=== PATIENT | female | born 1975 | race Caucasian/White ===

== ENCOUNTER 2022-04-01 05:24 | Observation (INO) ==
--- NOTE | 2022-03-28 20:22 | Anesthesiology Consultation ---
Date of Service March 28, 2022 Assessment & Plan (1) Encounter for pre-operative examination: - COVID screening: Per assessment on 03/25: No known COVID-19 positive contacts or current COVID-19 related symptoms. Travel screen negative. Patient vaccinated. Surgeon arranging preop COVID testing. Awaiting results. -Check test AM DOS -Graves dz/hyperthyroidism: Euthyroid off meds, under surveillance by PCP. Most recent TSH/free T4 were WNL but not since 07/2021.At anesthesiologist discretionAM DOS if updated levels needed from their perspective. Chart Review Chart Review: Acceptable Risk for Surgery and Patient NOT seen in Pre Admission Testing History Surgery Operation Date: 04/01/22 13:35 Proposed Procedures p Laparoscopic Hysterectomy Bilateral Salpingectomy, Cystoscopy with Possible Laparotomy - Martin Hitchcock MD Height/Weight Height: 5 ft 5.75 in Weight: 60.781 kg Allergies Allergy/AdvReac Type Severity Reaction Status Date / Time No Known Allergies Allergy NKA+ Verified 03/25/22 15:47 Medications Home Medications Medication Instructions Recorded Confirmed Last Taken clonazepam 0.5 mg tablet 0.5 mg PO BID PRN 03/15/22 03/25/22 Unknown fluticasone propionate 50 1 spray INTRANASAL QAM 03/15/22 03/25/22 Unknown mcg/actuation nasal spray,suspension loratadine 10 mg tablet 10 mg PO QAM 03/15/22 03/25/22 Unknown mesalamine 1.2 gram tablet,delayed 1.2 g PO QPM 03/15/22 03/25/22 Unknown release phenytoin sodium extended 100 mg 300 mg PO HS 03/15/22 03/25/22 Unknown capsule (Dilantin Extended) venlafaxine 75 mg tablet 75 mg PO QAM 03/15/22 03/25/22 Unknown Past Medical History Medical History Adenomyosis Anxiety EIN (endometrial intraepithelial neoplasia) Graves disease History of hyperthyroidism Euthyroid off meds, under surveillance by PCP History of seizures Last seizure 30+ years ago Stable/no recent issues per 12/28/21 [facility] neurology office visit, recommendation to f/u in one year Ulcerative colitis Past Family History Family History Other No family history of adverse response to anesthesia Past Surgical History Surgical History History of colonoscopy History of open reduction and internal fixation (ORIF) procedure LLE History of wisdom tooth extraction Social History Smoking Status: Former smoker Do You Dip or Chew Tobacco: No Smoking End Date: 10 yrs ago Hx Alcohol Use: No Hx Substance Use: No substance use type: does not use Testing Laboratory Results 08/17/21 TSH 0.66 (WNL) FREE T4 0.8 (WNL) 03/01/22 WBC 3.37 H/H 15.3/46.1 PLATELETS 270
[2022-04-01] MEDS ORDERED: LR 15ML/HR IV SCH (06:00)
[2022-04-01] MEDS ORDERED: ACETAMINOPHEN 1000 MG/100 ML IV IV ONE (06:11)
[2022-04-01] MEDS ORDERED: SUGAMMADEX SODIUM 200 MG/2 ML VIAL IV ONE (06:12)
[2022-04-01] MEDS ORDERED: MIDAZOLAM HCL 1 MG/ML 2ML VIAL ONE (06:34)
[2022-04-01] MEDS ORDERED: fentaNYL citrate 100 MCG/2 ML VIAL ONE ×2 (06:34→08:33)
[2022-04-01] MEDS ORDERED: fentaNYL citrate 100 MCG/2 ML VIAL IV PRN (06:35)
[2022-04-01] MEDS ORDERED: ONDANSETRON INJ 2 MG/ML 2 ML VIAL IV PRN ×2 (06:35→09:44)
[2022-04-01] MEDS ORDERED: ePHEDrine sulfate 50 MG/ML AMP IV PRN (06:35)
[2022-04-01] MEDS ORDERED: ATROPINE SULFATE 0.1 MG/ML 10ML SYR IV PRN (06:35)
[2022-04-01] MEDS ORDERED: FAMOTIDINE/PF 20 MG/2 ML VIAL IV ONE (06:36)
[2022-04-01] MEDS ORDERED: ceFAZolin 2,000 MG/15 ML IV PUSH IV ONE (06:55)
--- NOTE | 2022-04-01 06:56 | History & Physical Bridge Note ---
Date of Service April 01, 2022 History & Physical Bridge Note I have examined the patient, reviewed the History & Physical and in the interval since the performance of the History & Physical I have noted the following changes of clinical significance: no changes noted
[2022-04-01] MEDS ORDERED: ceFAZolin 2000MG 2,000 MG/15 ML SYR IV ONE (06:57)
[2022-04-01] MEDS ORDERED: BUPIVACAINE 0.5 % 5 MG/1 ML MPF 30ML VIAL ONE (07:00)
[2022-04-01] MEDS ORDERED: PROPOFOL IV EMULSION 10 MG/ML 20 ML VIAL IV ONE (07:40)
[2022-04-01] MEDS ORDERED: ROCURONIUM BROMIDE 10 MG/ML 5 ML VIAL IV ONE ×3 (07:40→08:13)
[2022-04-01] MEDS ORDERED: KETOROLAC 30 MG/ML VIAL ONE (07:40)
[2022-04-01] MEDS ORDERED: LIDOCAINE 2% 2 ML VIAL/AMP(20MG/ML) INFIL ONE (07:40)
[2022-04-01] MEDS ORDERED: DEXAMETHASONE SOD INJ 4 MG/ML VIAL ONE (07:40)
[2022-04-01] MEDS ORDERED: ONDANSETRON INJ 2 MG/ML 2 ML VIAL ONE (07:40)
[2022-04-01] MEDS ORDERED: diphenhydrAMINE 50 MG/ML VIAL ONE (07:41)
[2022-04-01] MEDS ORDERED: ePHEDrine sulfate 50 MG/ML SYR ONE (07:48)
[2022-04-01] MEDS ORDERED: METHYLENE BLUE 0.5% 10 ML VIAL ONE ×2 (08:24)
[2022-04-01] MEDS ORDERED: TISSEEL FIBRIN SEALANT 10ML TOP ONE (09:32)
[2022-04-01] MEDS ORDERED: oxyCODONE/ACETAMINOPHEN 5mg/325mg TAB PO PRN (09:44)
[2022-04-01] MEDS ORDERED: ZOLPIDEM TARTRATE 5 MG TAB PO PRN (09:44)
[2022-04-01] MEDS ORDERED: bisacodyL 10 MG SUPP PR PRN (09:44)
[2022-04-01] MEDS ORDERED: MAGNESIUM HYDROXIDE SUSP 30 ML UDC PO PRN (09:44)
[2022-04-01] MEDS ORDERED: PROMETHAZINE HCL 12.5 MG in SODIUM CHLORIDE 0.9% 50 ML IV PRN (09:44)
[2022-04-01] MEDS ORDERED: LACTATED RINGER'S 1,000 ML IV SCH (09:45)
--- NOTE | 2022-04-01 10:59 | Anesthesiology Progress Note ---
Date of Service April 01, 2022 Anesthesia Post Procedure Vital Signs Vital Signs: Temp Pulse Pulse Resp BP Pulse Ox 04/01/22 10:40 72 14 117/72 97 04/01/22 10:25 97.5 F L 71 18 117/76 95 04/01/22 10:15 79 13 120/83 97 04/01/22 10:05 77 12 139/87 99 04/01/22 09:55 83 14 132/85 99 04/01/22 09:45 97.3 F L 68 16 104/63 99 04/01/22 05:46 98.8 F 70 16 96/68 L 97 Transfer of Care Handoff Completed per policy Notes Mental Status: alert / awake / arousable and participated in evaluation Patient Amnestic to Procedure: Yes Nausea / Vomiting: adequately controlled Pain: adequately controlled Airway Patency, RR, SpO2: stable & adequate BP & HR: stable & adequate Hydration State: stable & adequate Anesthetic Complications: no major complications apparent and Pt Satisfied with anesthetic care
--- NOTE | 2022-04-01 12:23 | Post Operative Brief Note ---
Immediate Post Op Note v1 Date of Surgery April 01, 2022 Pre & Post Diagnosis Operation Date: 04/01/22 07:00 Pre-Op Diagnosis: Endometrial Intraepithelial Neoplasia Post-Op Diagnosis: Endometrial Intraepithelial Neoplasia I identified the patient and participated in the time-out.: Yes Procedure Operation Date: 04/01/22 07:00 Actual Procedures p Laparoscopic Hysterectomy Bilateral Salpingectomy,(Not Applicable) - Martin Hitchcock MD s Cystoscopy(Not Applicable) - Martin Hitchcock MD Surgeon Martin Hitchcock MD Licensing Engineer pratima gutierrez Estimated Blood Loss 20 Findings Consistent with Post-Op Diagnosis
[2022-04-01] MEDS: SIMETHICONE 80 MG CHEW PO PRN (13:01)
[2022-04-01] MEDS: oxyCODONE/ACETAMINOPHEN 5mg/325mg TAB PO PRN ×2 (16:09→21:05)
[2022-04-01] MEDS: IBUPROFEN 600 MG TAB PO PRN ×2 (16:09→21:05)
[2022-04-01] MEDS ORDERED: Nursing to Pharmacy Communication SCH (19:00)
[2022-04-01] MEDS ORDERED: PHENYTOIN 100 MG/4 ML UDP PO SCH (21:00)
[2022-04-01] MEDS ORDERED: PHENYTOIN SODIUM ER 100 MG CAP PO SCH (21:00)
[2022-04-01] MEDS: DOCUSATE SODIUM 100 MG CAP PO SCH (21:03)
--- NOTE | 2022-04-01 22:39 | Operative Report (OR) ---
DATE OF PROCEDURE: 04/01/2022 INDICATION FOR SURGERY: This is a 46-year-old with endometrial intraepithelial neoplasia. PREOPERATIVE DIAGNOSIS: Endometrial intraepithelial neoplasia. POSTOPERATIVE DIAGNOSIS: Endometrial intraepithelial neoplasia. SURGEON: Martin Hitchcock MD. ZIPPER CUTTER: ALVINO Jaffe. ATTESTATION FOR ZIPPER CUTTER: Field Interviewer was necessary to help with manipulation and retraction to help provide for safe surgery. ANESTHESIA: General. DRAINS: None. OPERATIVE PROCEDURE: 1. Total laparoscopic hysterectomy. 2. Bilateral salpingectomy. 3. Cystoscopy. ESTIMATED BLOOD LOSS: 20 mL. URINE OUTPUT: 400 mL of clear urine at the end of procedure. INTRAVENOUS FLUIDS: 1700 mL. SPECIMENS: Uterus and cervix with left and right fallopian tubes. INTRAOPERATIVE COMPLICATIONS: None. PATIENT CONDITION: Stable. DISPOSITION: Postanesthesia care unit. ATTESTATION: I performed the entire procedure. FINDINGS: Normal female escutcheon. No lesions on the vagina or cervix. Abdominal findings; uterus about 9 week size uterus, left adnexa shows normal tube. The left ovary has what appears to be a co rpus luteum on it. The right ovary appeared grossly normal. The right fallopian tube appeared bill l. Rest of the pelvic exam is unremarkable as well as rest of the abdominal exam. DESCRIPTION OF PROCEDURE: The patient was taken to the operating room where she was prepped and drap ed in a normal sterile fashion in dorsal lithotomy position. Timeout was called. Monahan catheter was placed inside the bladder. A weighted speculum was placed in the vagina. The VCare was placed arou nd the cervix to help manipulate the uterus during laparoscopy. A large sized VCare was used. Attention was paid to the abdominal part of the procedure where a supraumbilical incision was made wi th a scalpel and carried down to the fascia. A Veress needle was introduced into the abdomen at a 45 -degree angle while tenting up the abdomen. Intraabdominal placement was confirmed with a water-fill ed syringe. Water drop and suction test was performed. Abdomen was insufflated with 3 L of CO2 gas. The Veress needle was removed and a 5 mm trocar was attached to the laparoscope and introduced into the abdomen. This was a nonbladed trocar, placement was done under direct visualization. Once insi de the abdomen, the findings are as dictated above. Three more accessory ports were placed, 11 mm trocars were placed on the left side of the abdomen and a 5 mm trocar on the right. These were all placed under direct visualization as well. The hysterec ronny part of the procedure was then started. General appearance of the pelvis and abdomen was as dic tated above. The left and right fallopian tubes and ovaries were identified. The bladder, ureters, uterosacrals, bowels, cecum were all identified. A LigaSure was passed through the left accessory po rt. The left fallopian tube was identified and grabbed 4 cm from the cornua of the uterus with the L igaSure and transected. This was followed by opening the left anterior leaf of the broad ligament. The mid-section of the left fallopian tube, uterine, ovarian and meso-ovarian pedicles were transecte d as well. The same procedure was performed on the contralateral side. The anterior broad ligament dissection was carried out to the mid-section of the vesicouterine perito neum over the bladder using the Harmonic scalpel. The same procedure was carried out on the contrala teral side. The posterior broad ligament peritoneum was carefully dissected from both sides over the uterosacral arch in order to displace the ureters laterally. Using traction and countertraction, a [place] retractor and irrigation probe were used to further dissect the bladder off the lower segmen t of the uterus. Bladder pillars and pubovesical fascias were dissected as well. Harmonic scalpel w as used to obtain hemostasis when needed. The uterine manipulator was now palpable over the vaginal tissue. The right uterine pedicles were sk eletonized and coagulated with LigaSure. Good hemostasis was obtained. The same procedure was perfo rmed on the contralateral side. The cardinal ligaments were transected on both sides. Once good hem ostasis was obtained, colpotomy was performed using the LigaSure hook from both sides. Uterus was re moved through the vagina while still attached to the uterine manipulator. A glove filled with sponge was placed in the vagina to help maintain hemostasis. With a grasper, the remaining sections of the left tube and ovary were positioned anteromedially and salpingectomy was p erformed by transecting the tube. This was performed using the LigaSure. The same procedure was per formed on the contralateral side. These tubes were removed through the 10 mm trocar sites. EndoStitch closure device was passed through the 10 mm port on the left and using the [place] graspe r for traction, colpotomy closure was performed. The uterosacral ligaments were incorporated into th e closure in order to decrease the risks of prolapse. Lapra-Tys were used with the EndoStitch. Attention was paid to the cystoscopy part of the procedure. Cystoscope was passed through the ureter al orifice into the bladder. Inspection of the bladder shows no lesions or sutures. Bubble sign was present showing this is a close cavity. The trigone of the bladder was identified. The left and ri ght ureteral openings were identified. The patient had been given methylene blue earlier in the case . Blue urine was seen ejecting out of these orifices without any difficulty. The scope was removed. Attention was paid back to the abdominal part of the procedure where all trocars were removed from th e abdomen. The 10 mm ports are closed using the Gus-Harshil closure. On the skin, the 5 mm site s are closed with Dermabond. The 10 mm sites, however, are closed with 4-0 Monocryl. All instruments were removed from the vagina and the abdomen and the bladder and accounted for x2 inc luding sponges, needles, and retractors. The patient is sent to recovery in stable condition. Job ID: [id number]
[2022-04-02] MEDS: oxyCODONE/ACETAMINOPHEN 5mg/325mg TAB PO PRN ×2 (01:06→09:30)
[2022-04-02] MEDS: IBUPROFEN 600 MG TAB PO PRN ×2 (01:06→07:55)
[2022-04-02] MEDS: SIMETHICONE 80 MG CHEW PO PRN (05:29)
[2022-04-02 06:59] LABS: Basophils # (auto) 0.02 K/uL (0-0.2); Basophils % (auto) 0.2 %; Eosinophils # (auto) 0.11 K/uL (0-0.5); Eosinophils % (auto) 1.2 %; Hematocrit (blood only) 36.3 % (37-47); Hemoglobin 12.3 g/dL (12.0-16.0); Immature Granulocytes # (auto) 0.02 K/uL (0.00-0.02); Immature Granulocytes % (auto) 0.2 %; Lymphocytes # (auto) 1.65 K/uL (1.2-3.4); Lymphocytes % (auto) 18.2 %; Mean Corpuscular Hemoglobin 32.6 pg (25-34); Mean Corpuscular Hgb Conc 33.9 g/dL (32-36); Mean Corpuscular Volume 96.3 fL (80-100); Mean Platelet Volume 10.4 fL (7.4-10.4); Monocytes # (auto) 0.63 K/uL (0.11-0.59); Neutrophils # (auto) 6.63 K/uL (1.4-6.5); Neutrophils % (auto) 73.2 %; Platelet Count 246 K/uL (130-400); RDW Coefficient of Variation 13.6 % (11.5-14.5); RDW Standard Deviation 47.6 fL (36.4-46.3); Red Blood Count 3.77 M/uL (4.2-5.4); White Blood Count 9.06 K/uL (4.8-10.8)
[2022-04-02] MEDS: DOCUSATE SODIUM 100 MG CAP PO SCH (07:55)
--- NOTE | 2022-04-02 08:03 | Obstetrical Progress Note ---
Date of Service April 02, 2022 Assessment & Plan (1) Encounter for pre-operative examination: post op day#1 pt doing well d/c home with instructions Subjective Review of Systems All systems reviewed & are unremarkable except as noted in HPI & below Physical Exam Constitutional WD/WN, vitals as above Eyes PERRL, conjunctivae normal, anicteric sclerae ENMT external ear and nose normal, oropharynx normal Neck trachea midline, no thyromegaly Respiratory normal respiratory effort, lungs clear to auscultation Cardiovascular RRR, no murmur, no edema Chest (Breasts) normal inspection/palpation of breasts Gastrointestinal (Abdomen) normal bowel sounds, soft, nontender, no hepatosplenomegaly Musculoskeletal no cyanosis or clubbing, extremities motor strength 5/5 Skin + incision (Incision clean,dry and intact) Neurologic patellar DTR's 2+ bilat, sensation intact Psychiatric A+Ox3, euthymic affect Genitourinary no vaginal lesions, no adnexal mass Lymphatic no cervical or axillary lymphadenopathy Results & Data ([facility]) Vital Signs (Past 12 Hours) Vital Signs Temp Pulse Resp BP Pulse Ox 04/02/22 03:33 37 C 72 16 108/72 95 04/01/22 23:06 37.2 C 68 16 113/71 98 04/01/22 20:15 37 C 76 20 113/72 96
[2022-04-02 08:24] LABS: Calcium 8.5 mg/dl (8.5-10.1); Potassium 3.8 mmol/L (3.5-5.1)
[2022-04-02 08:30] LABS: Creatinine Clr Calc Pharmacy 108.7 ml/min; Est GFR (African American) 127.6 ml/min; Est GFR (Non-African American) 110.1 ml/min
--- NOTE | 2022-04-03 06:46 | Discharge Summary (DS) ---
DATE OF ADMISSION: 04/01/2022. DATE OF DISCHARGE: 04/02/2022. CHIEF COMPLAINT: Endometrial intraepithelial lesion. HISTORY OF PRESENT ILLNESS: This is a 46-year-old with endometrial intraepithelial lesion. The patient underwent a total laparoscopic hysterectomy, bilateral salpingectomy, and cystoscopy. Surgery was otherwise unremarkable. Details of surgery is in the surgical note. Today, the patient is being discharged home in stable condition. PAST MEDICAL HISTORY: History of adenomyosis, anxiety, endometrial intraepithelial lesion, Graves disease, seizures, and ulcerative colitis. PAST SURGICAL HISTORY: History of colonoscopy, history of open reduction and internal fixation procedure and hysteroscopy procedure. SOCIAL HISTORY: The patient is and lives with spouse. Denies tobacco, drug, or alcohol use. FAMILY HISTORY: Noncontributory. ALLERGIES: No known drug allergies. PHYSICAL EXAMINATION: VITAL SIGNS: This morning blood pressure is 122/80, pulse is 85, respirations 16, temperature 36.5. HEART: S1 and S2, regular rhythm and rate. LUNGS: Clear to auscultation bilaterally. ABDOMEN: Nontender, positive bowel sounds. Incision sites are clean, dry, and intact. EXTREMITIES: No cyanosis, clubbing, or edema. LABORATORY DATA: CBC this morning showed hemoglobin of 12.3, hematocrit of 36.3. Rest of CBC and complete chemistry are unremarkable. CONDITION ON DISCHARGE: Stable. OPERATIONS: Total laparoscopic hysterectomy with bilateral salpingectomy and cystoscopy. DISCHARGE DIAGNOSIS: Postoperative after surgery as stated above. PLAN ON DISCHARGE: The patient is discharged home with instructions regarding activity, diet, followup appointment, and medications. Job ID: [id number] [facility]
== END 2022-04-02 10:46 | disposition home or self-care (01) ==
LOC: ASU 05:24 → 4E1 05:24